=== PATIENT | male | born 1960 | race African-American/Black ===

== ENCOUNTER 2017-07-13 12:34 | Emergency (ER) | payer MEDICAID ==
[~2017-07-13] VITALS: Ht 185.4 cm; Wt 100.0 kg
[~2017-07-13 12:34] MED LIST: AMBILIFY
[2017-07-13] MEDS ORDERED: ARIP2TAB3 PO (12:43)
[2017-07-13] MEDS ORDERED: ASPI-1159 PO (12:43)
[2017-07-13] MEDS ORDERED: CARBAMIDE PEROXIDE 6.5% OTIC SOLN 15ML EACH EAR ONE (15:00)
[2017-07-13 16:21] VITALS: BP 128/80
== END 2017-07-13 17:35 | disposition home or self-care (01) ==
LOC: ER 13:48
DX: H61.21 Impacted cerumen, right ear (principal); H60.91 Unspecified otitis externa, right ear; Z86.79 Personal history of other diseases of the circulatory system; Z79.82 Long term (current) use of aspirin
CPT/HCPCS: 69209; 99283; A4217

== ENCOUNTER 2017-12-30 21:48 | Emergency (ER) | payer MEDICAID ==
[~2017-12-30] VITALS: Ht 185.4 cm; Wt 106.0 kg
[~2017-12-30 21:48] MED LIST changes: +ARIP2TAB3 PO; +ASPI-1159 PO
[2017-12-30 23:39] VITALS: BP 134/87
[2017-12-30] MEDS ORDERED: SULFAMETHOXAZOLE/TRIMETHOPRIM 800/160MG TABLET PO ONE (23:45)
== END 2017-12-30 23:59 | disposition home or self-care (01) ==
LOC: ER 21:48
DX: L03.012 Cellulitis of left finger (principal); F20.9 Schizophrenia, unspecified; F12.10 Cannabis abuse, uncomplicated; R03.0 Elevated blood-pressure reading, without diagnosis of hypertension; Z79.82 Long term (current) use of aspirin
CPT/HCPCS: 99283

== ENCOUNTER 2018-01-21 11:40 | Emergency (ER) | payer MEDICAID ==
[~2018-01-21] VITALS: Ht 185.4 cm; Wt 104.0 kg
[2018-01-21] MEDS ORDERED: S350 PO (11:56)
[2018-01-21] MEDS: DEXAMETHASONE 10 MG/ML VIAL IM ONE ×2 (12:48→13:30)
[2018-01-21] MEDS: DIAZEPAM 2 MG TABLET PO ONE ×2 (12:48→13:15)
[2018-01-21] MEDS: KETOROLAC 60MG/2ML VIAL IM ONE ×2 (12:48→13:15)
[2018-01-21 13:15] VITALS: BP 147/106
== END 2018-01-21 14:35 | disposition home or self-care (01) ==
LOC: ER 11:40
DX: M62.838 Other muscle spasm (principal); F31.9 Bipolar disorder, unspecified; F20.9 Schizophrenia, unspecified; F12.10 Cannabis abuse, uncomplicated; Z79.82 Long term (current) use of aspirin
CPT/HCPCS: 96372; 99284; J1100; J1885

== ENCOUNTER 2018-05-06 21:02 | Emergency (ER) | payer MEDICAID ==
[~2018-05-06] VITALS: Ht 185.4 cm; Wt 105.0 kg
[~2018-05-06 21:02] MED LIST changes: +S350 PO
[2018-05-07] MEDS ORDERED: SODIUM CHLORIDE 0.9% 1,000 ML IV ONE (03:55)
[2018-05-07] MEDS ORDERED: KETOROLAC 30MG/ML VIAL IV STA (03:55)
[2018-05-07 05:00] LABS: BASOPHILS % 0.4 % (0.0-2.0); EOSINOPHILS % 0.3 % (0.0-5.0); HEMATOCRIT. 44.4 % (42.0-52.0); HEMOGLOBIN. 14.8 g/dL (14.0-18.0); LYMPHOCYTES % 25.5 % (20.0-50.0); MEAN CORPUSCULAR HEMOGLOBIN 30.2 pg (28.0-32.0); MEAN CORPUSCULAR VOLUME 90.5 fL (80.0-94.0); MEAN PLATELET VOLUME 7.3 fl (7.4-10.4); MONOCYTES % 10.9 % (2.0-8.0); NEUTROPHILS % 62.9 % (40.0-76.0); PLATELET 342 x1000/uL (130-400); RED BLOOD CELL COUNT 4.91 mill/uL (4.7-6.1); RED CELL DISTRIBUTION WIDTH 13.4 % (11.6-14.6)
[2018-05-07 05:05] LABS: CHLORIDE 101 mEq/L (98-107)
[2018-05-07 06:17] LABS: COLOR URINE YELLOW (YELLOW); KETONES URINE 2+ (NEGATIVE); LEUKOCYTE ESTERASE URINE NEGATIVE (NEGATIVE); NITRITE URINE NEGATIVE (NEGATIVE); OCCULT BLOOD URINE NEGATIVE (NEGATIVE); PH URINE 5.5 (4.5-8.0); PROTEIN URINE TRACE (NEGATIVE); SPECIFIC GRAVITY URINE 1.031 (1.005-1.030); UROBILINOGEN URINE 0.2 E.U./dL (0.2-1.0)
[2018-05-07 06:25] LABS: CLARITY URINE CLEAR (CLEAR)
[2018-05-07 07:15] VITALS: BP 128/89
== END 2018-05-07 08:30 | disposition home or self-care (01) ==
LOC: ER 21:02
DX: R10.0 Acute abdomen (principal); R42 Dizziness and giddiness; F12.90 Cannabis use, unspecified, uncomplicated; F20.9 Schizophrenia, unspecified
CPT/HCPCS: 36415; 71045; 80053; 81003; 83690; 85025; 93005; 96374; 99284; J1885; J7030